=== PATIENT | male | born 1945 | race Caucasian/White ===

== ENCOUNTER 2021-09-19 09:43 | Inpatient (IN) | payer OTHER ==
[~2021-09-19] VITALS: Ht 188 cm; Wt 59.0 kg
[~2021-09-19 09:43] MED LIST: ADULT LOW DOSE81 MG PO; ASPIR-LOW81 MG PO; ASPIRIN EC81 MG PO; AUGMENTIN 875-1 EACH PO; BUSPAR 5MG TABLE5 MG PO; BUTALB-ACETAMI1 EAC1 PO; CIPRO500 MG PO; CLOPIDOGREL75 MG PO; COMBIVENT RESPIM4 GM INH; COMBIVENT0.074 GM/I INH; DOXYCYCLINE HY100 M2 PO; ELIQUIS 5 MG TAB5 MG PO; ELIQUIS5 MG PO; ENULOSE10 GM/15 M PO; FAMOTIDINE40 MG PO; FEOSOL325 MG PO; FLOMAX0.4 MG PO; FOLIC ACID 1 MG1 MG PO; HABITROL 21 MG P1 EA TD; IMODIUM CAP 2 MG2 MG PO; K-DUR TAB 20 M20 MEQ PO; KEPPRA500 MG PO; LEVAQUIN500 MG PO; LEVAQUIN750 MG PO; LIPITOR40 MG PO; LOPRESSOR 25 MG25 MG GT; LOPRESSOR 25 MG25 MG PO; MEDROL DOSEPAK 24 MG PO; MEDROL4 MG PO; METOPROLOL TART50 MG PO; MIRTAZAPINE45 MG PO; NEURONTIN 100100 MG PO; NITROSTAT0.4 MG SL; NORVASC 5 MG TAB5 MG PO; NORVASC10 MG PO; OMEPRAZOLE20 M1 PO; OMEPRAZOLE20 MG PO; OMNICEF 300 MG300 MG PO; PAXIL20 MG PO; PROTONIX40 MG PO; PROVENTIL HFA 61 INH INH; RANITIDINE HCL PO; REMERON15 MG PO; REMERON45 MG PO; SENOKOT-S TABL1 EACH PO; SPIRIVA HANDIH18 MCG INH; SYMBICORT 16010.2 GM INH; VANCOCIN HCL125 MG PO; VITAMIN D350 MCG PO; XANAX0.5 MG PO; ZANTAC 150 MG150 MG PO; ZOFRAN ODT 4 MG4 MG SL
[2021-09-19 10:18] LABS: RED BLOOD COUNT 4.53 M/UL (4.20-5.50); WHITE BLOOD COUNT 6.9 K/UL (4.5-11.0)
[2021-09-19 10:41] LABS: BUN/CREATININE RATIO 31 (0-10)
[2021-09-19] MEDS ORDERED: DICLOFENAC SODI75 MG PO (15:05)
[2021-09-19] MEDS ORDERED: KLONOPIN0.5 MG PO (15:05)
[2021-09-19] MEDS ORDERED: BUSPAR 10MG10 MG PO (15:57)
[2021-09-20 04:43] LABS: HEMOGLOBIN 13.2 gm/dl (14.0-17.5); WHITE BLOOD COUNT 5.3 K/UL (4.5-11.0)
[2021-09-20 05:09] LABS: RED BLOOD COUNT 3.87 M/UL (4.20-5.50)
[2021-09-20 05:12] LABS: BUN/CREATININE RATIO 33 (0-10)
--- NOTE | 2021-09-20 13:22 | NUR ---
NOTIFIED DR ROSAS OF PATIENT CONTINUING TO REFUSE TELE. NEW ORDER TO DC TELE AT THIS TIME.
[2021-09-21 08:08] LABS: HEMOGLOBIN 12.8 gm/dl (14.0-17.5); RED BLOOD COUNT 3.83 M/UL (4.20-5.50); WHITE BLOOD COUNT 5.5 K/UL (4.5-11.0)
[2021-09-21 08:27] LABS: BUN/CREATININE RATIO 41 (0-10)
[2021-09-23 05:47] LABS: HEMOGLOBIN 13.2 gm/dl (14.0-17.5); RED BLOOD COUNT 3.97 M/UL (4.20-5.50)
[2021-09-23 06:08] LABS: BUN/CREATININE RATIO 50 (0-10)
[2021-09-24] MEDS ORDERED: BROVANA15 MCG/2 M NEB (13:36)
[2021-09-24] MEDS ORDERED: BUDESONIDE0.5 MG/2 M NEB (13:36)
[2021-09-24] MEDS ORDERED: BENZONATATE100 MG PO (13:36)
[2021-09-24] MEDS ORDERED: DEXAMETHASONE 44 MG PO (13:36)
[2021-09-24] MEDS ORDERED: THERAGRAN M TAB1 EA PO (13:36)
[2021-09-24] MEDS ORDERED: AUGMENTIN 875-1 EACH PO (13:36)
[2021-09-24] MEDS ORDERED: IPRAT-ALBUT 0.5-3 ML NEB (13:36)
--- NOTE | 2021-09-24 18:50 | NUR ---
CALLED REPORT TO AMBER AT [facility]. THEY WILL BE IN CONTACT WITH THE PATIENT TO RESUME CARE.
== END 2021-09-24 18:00 | disposition home health service (06) | DRG 177 ==
LOC: ER1 09:43 → MED SURG 4 12:14 → CDU 12:14 → MED SURG 4 15:05
PROVIDERS: Emergency Medicine; Physician Assistant Medical; ADMIT Internal Medicine Infectious Disease
PROC: 8E0ZXY6 Isolation (ICD-10-PCS; principal; 2021-09-19)
PROC: XW033E5 Introduction of Remdesivir Anti-infective into Peripheral Vein, Percutaneous Approach, New Technology Group 5 (ICD-10-PCS; 2021-09-19)
PROC: 3E0333Z Introduction of Anti-inflammatory into Peripheral Vein, Percutaneous Approach (ICD-10-PCS; 2021-09-19)
DX: U07.1 COVID-19 (principal); J12.82 Pneumonia due to coronavirus disease 2019; J69.0 Pneumonitis due to inhalation of food and vomit; J96.21 Acute and chronic respiratory failure with hypoxia; J44.0 Chronic obstructive pulmonary disease with (acute) lower respiratory infection; E46 Unspecified protein-calorie malnutrition; J98.11 Atelectasis; Z68.1 Body mass index [BMI] 19.9 or less, adult; I71.4 Abdominal aortic aneurysm, without rupture; I71.2 Thoracic aortic aneurysm, without rupture; I73.9 Peripheral vascular disease, unspecified; I10 Essential (primary) hypertension; E78.5 Hyperlipidemia, unspecified; F17.210 Nicotine dependence, cigarettes, uncomplicated; G40.909 Epilepsy, unspecified, not intractable, without status epilepticus; Z86.718 Personal history of other venous thrombosis and embolism; Z90.49 Acquired absence of other specified parts of digestive tract; Z98.890 Other specified postprocedural states; Z95.828 Presence of other vascular implants and grafts; Z79.82 Long term (current) use of aspirin; Z79.899 Other long term (current) drug therapy
CPT/HCPCS: 0240U; 36415; 36600; 71045; 71275; 80048; 80053; 81001; 82550; 82553; 82803; 82962; 83605; 83735; 83874; 83880; 84484; 85025; 85027; 85379; 86140; 87040; 93005; 93970; 94640; 94664; 94760; 96374; 96375; 97161; 99285; J0248; J0295; J1100; J1650; J2543; J7030; Q9967

== ENCOUNTER 2021-10-11 13:11 | Emergency (ER) | payer MEDICARE, OTHER ==
[~2021-10-11 13:11] MED LIST changes: +BENZONATATE100 MG PO; +BROVANA15 MCG/2 M NEB; +BUDESONIDE0.5 MG/2 M NEB; +BUSPAR 10MG10 MG PO; +DEXAMETHASONE 44 MG PO; +DICLOFENAC SODI75 MG PO; +IPRAT-ALBUT 0.5-3 ML NEB; +KLONOPIN0.5 MG PO; +THERAGRAN M TAB1 EA PO
[2021-10-11 13:40] LABS: HEMOGLOBIN 13.8 gm/dl (14.0-17.5); RED BLOOD COUNT 4.04 M/UL (4.20-5.50); WHITE BLOOD COUNT 5.3 K/UL (4.5-11.0)
[2021-10-11 14:14] LABS: BUN/CREATININE RATIO 28 (0-10)
[2021-10-11] MEDS ORDERED: HYDROCODON-ACE1 EAC4 PO (17:26)
== END 2021-10-11 18:05 | disposition home or self-care (01) ==
LOC: ER1 13:11
PROVIDERS: Physician Assistant
DX: S22.42XA Multiple fractures of ribs, left side, initial encounter for closed fracture (principal); R55 Syncope and collapse; I11.9 Hypertensive heart disease without heart failure; F17.210 Nicotine dependence, cigarettes, uncomplicated; Z20.822 Contact with and (suspected) exposure to COVID-19; W19.XXXA Unspecified fall, initial encounter
CPT/HCPCS: 70450; 71045; 71260; 73060; 73090; 80053; 82550; 82553; 83874; 84484; 85025; 93005; 99284; Q9967; U0002

== ENCOUNTER 2021-12-29 14:43 | Emergency (ER) | payer MEDICARE, OTHER ==
[~2021-12-29 14:43] MED LIST changes: +AMLODIPINE BESY10 MG PO; +AMOX TR-K CLV1 EAC4 PO; +ATORVASTATIN CA40 MG PO; +ENSURE LIQUID237 ML PO; +HYDROCODON-ACE1 EAC4 PO; +IPRAT-ALBUT 0.5-3 ML INH; +LORATADINE10 MG PO; +NEBULIZER UNIT NEB; +VOLTAREN EC 7575 MG PO
[2021-12-29 16:11] LABS: HEMOGLOBIN 13.4 gm/dl (14.0-17.5); RED BLOOD COUNT 3.99 M/UL (4.20-5.50); WHITE BLOOD COUNT 4.5 K/UL (4.5-11.0)
[2021-12-29 16:19] LABS: BUN/CREATININE RATIO 28 (0-10)
== END 2021-12-29 18:59 | disposition home or self-care (01) ==
LOC: ER1 14:43
PROVIDERS: Family Medicine
DX: J43.9 Emphysema, unspecified (principal); I25.10 Atherosclerotic heart disease of native coronary artery without angina pectoris; F17.200 Nicotine dependence, unspecified, uncomplicated; Z99.81 Dependence on supplemental oxygen
CPT/HCPCS: 71045; 80053; 82550; 82553; 83605; 83880; 84484; 85025; 85610; 93005; 99285